=== PATIENT | female | born 1965 | race Two or more races ===

== ENCOUNTER → 2017-05-28 | Outpatient (REF) | payer BC | LOC: M LAB REF 16:57 | DX: Z87.440 Personal history of urinary (tract) infections (principal) | CPT/HCPCS: 87186 ==

== ENCOUNTER → 2020-01-20 | Outpatient (REF) | payer BC ==
[~2020-01-20] MED LIST: AMLO1TAB24 PO; ASPI81TA86 PO; BENA25CA4 PO; BREO1INH INH; CLAR1TAB13 PO; DEXI60CA2 PO; FAMO20TA PO; LEVO100T5 PO; MONT10TA4 PO; OSTETAB3 PO; PANT40TA29 PO; SIME180C PO; TAGA200T3 PO
[2020-01-20 19:27] LABS: PERCENT SATURATION 9.4 % (13.2-45.0)
== END ==
LOC: M LAB REF 16:48
PROVIDERS: ATTEND Internal Medicine Nephrology
DX: D64.9 Anemia, unspecified (principal)

== ENCOUNTER 2020-01-29 12:33 | Outpatient (CLI) | payer BC ==
[~2020-01-29] VITALS: Ht 162.6 cm; Wt 87.7 kg
[~2020-01-29 12:33] MED LIST changes: +ALBUTEROL SULFATE 2.5 MG/0.5 ML INH NEB SOLN INH PRN; -DEXI60CA2 PO; +EPINEPHrine INJ 1 MG/ML 1ML AMP IM PRN; +NS 1,000 ML IV SCH; +diphenhydrAMINE 50MG/ML VIAL (J1200) IV PRN; +methylPREDNISolone 125MG 2ML VIAL IV PRN
[2020-01-29 12:54] VITALS: BP 123/78
[2020-01-29] MEDS: FERRIC CARBOXYMALTOSE INJ 750 MG in NS 250 ML IV ONE (13:20)
[2020-01-29 14:49] VITALS: BP 112/67
== END 2020-01-29 14:45 | disposition home or self-care (01) ==
LOC: M INFU 12:33
PROVIDERS: ATTEND Internal Medicine Nephrology
DX: D50.9 Iron deficiency anemia, unspecified (principal)
CPT/HCPCS: 96365; J1439

== ENCOUNTER 2020-02-06 12:18 | Outpatient (CLI) | payer BC ==
[~2020-02-06] VITALS: Ht 162.6 cm; Wt 87.0 kg
[~2020-02-06 12:18] MED LIST changes: -ALBUTEROL SULFATE 2.5 MG/0.5 ML INH NEB SOLN INH PRN; -EPINEPHrine INJ 1 MG/ML 1ML AMP IM PRN; -NS 1,000 ML IV SCH; -diphenhydrAMINE 50MG/ML VIAL (J1200) IV PRN; -methylPREDNISolone 125MG 2ML VIAL IV PRN
[2020-02-06] MEDS ORDERED: NS 1,000 ML IV SCH (12:30)
[2020-02-06] MEDS ORDERED: FERRIC CARBOXYMALTOSE INJ 750 MG in NS 250 ML IV ONE (12:30)
[2020-02-06 12:34] VITALS: BP 170/90
[2020-02-06] MEDS ORDERED: DEXI60CA2 PO (12:52)
[2020-02-06 14:42] VITALS: BP 147/65
== END 2020-02-06 14:40 | disposition home or self-care (01) ==
LOC: M INFU 12:18
PROVIDERS: ATTEND Internal Medicine Nephrology
DX: D50.9 Iron deficiency anemia, unspecified (principal)
CPT/HCPCS: 96365; J1439

== ENCOUNTER → 2020-05-21 | Outpatient (REF) | payer BC ==
[~2020-05-21] MED LIST changes: +DEXI60CA2 PO; -MONT10TA4 PO; +MONT5TAB2 PO
[2020-05-21 17:45] LABS: PERCENT SATURATION 28.1 % (13.2-45.0)
== END ==
LOC: M LAB REF 16:52
PROVIDERS: ATTEND Internal Medicine Nephrology
DX: D64.9 Anemia, unspecified (principal)

== ENCOUNTER → 2020-11-22 | Outpatient (REF) | payer BC ==
[~2020-11-22] MED LIST changes: +MONT10TA97 PO; -MONT5TAB2 PO; -SIME180C PO; +SIME180C25 PO
[2020-11-22 14:42] LABS: MAGNESIUM LEVEL 1.8 MG/DL (1.8-2.4); PERCENT SATURATION 16.8 % (13.2-45.0)
== END ==
LOC: M LAB REF 12:53
PROVIDERS: ATTEND Internal Medicine Nephrology
DX: E83.42 Hypomagnesemia (principal); D64.9 Anemia, unspecified

== ENCOUNTER → 2021-09-14 | Outpatient (REF) | payer BC ==
[2021-09-14 17:55] LABS: PERCENT SATURATION 20.5 % (13.2-45.0)
== END ==
LOC: M LAB REF 16:45
PROVIDERS: ATTEND Internal Medicine Nephrology
DX: E61.1 Iron deficiency (principal)

== ENCOUNTER → 2023-12-11 | Outpatient (REF) | payer BC | LOC: M SFHCRHEU 10:09 | PROVIDERS: ATTEND Internal Medicine Rheumatology | DX: H92.03 Otalgia, bilateral (principal) ==